=== PATIENT | male | born 1995 | race Caucasian/White ===

== ENCOUNTER 2016-08-09 11:53 | Emergency (ER) | payer SELFPAY ==
[~2016-08-09] VITALS: Ht 172.7 cm; Wt 62.4 kg
[2016-08-09 12:07] VITALS: BP 121/71
== END 2016-08-09 13:02 | disposition home or self-care (01) ==
LOC: ED 11:53
DX: J01.10 Acute frontal sinusitis, unspecified (principal)
CPT/HCPCS: J1885

== ENCOUNTER 2017-01-24 22:17 | Emergency (ER) | payer MEDICAID ==
[~2017-01-24] VITALS: Ht 172.7 cm; Wt 64.4 kg
[2017-01-24 22:43] VITALS: BP 120/71
[2017-01-25 00:12] LABS: BASOPHIL % 0.2 % (0-2); PLATELET COUNT 254 x10^3mcL (130-400); RED CELL DISTRIBUTION WIDTH 12.9 % (11.5-14.5)
[2017-01-25 00:21] LABS: AMPHETAMINE QUAL UR NONE DETECTED (NEG <=1000)
== END 2017-01-25 00:48 | disposition home or self-care (01) ==
LOC: ED 22:17
PROVIDERS: Emergency Medicine
DX: F41.9 Anxiety disorder, unspecified (principal)
CPT/HCPCS: 36415